=== PATIENT | female | born 1985 | race Caucasian/White ===

== ENCOUNTER 2021-09-19 16:55 | Emergency (ER) | payer OTHER ==
[2021-09-19 17:07] VITALS: BP 129/89; PULSE 80; RESP 18; TEMP 98
[2021-09-19] MEDS ORDERED: KETOROLAC 15 MG/ML 1 ML VIAL IM STA (17:55)
--- NOTE | 2021-09-19 18:06 | ED ---
General Adult HPI - General Chief complaint: Extremity Problem,Nontraumatic Stated complaint: swelling in audra. legs Time Seen by Provider: 09/19/21 17:44 Source: patient, RN notes reviewed Mode of arrival: ambulatory Limitations: no limitations - History of Present Illness Initial comments: 36-year-old female presents to the emergency department for evaluation of pain and tenderness behind bilateral knees that extends into the calves. Patient states she had a vigorous workout on August 23 and woke up the next morning with this discomfort. Patient states she initially attributed the discomfort to her workout, however became concerned as the pain has persisted and she has some bruising to the back of the right knee and calf. Patient states she was seen at urgent care and given an order for a doppler study to rule out DVT but is unable to get in until next month. Patient denies chest pain, shortness of breath, long car rides, prolonged immobilization, or any medication changes. - Related Data Previous Rx's Medication Instructions Recorded Ketorolac [Toradol] 10 mg PO Q8HR PRN #15 tab 09/19/21 Allergies Allergy/AdvReac Type Severity Reaction Status Date / Time acetaminophen [From [place]] Allergy Unknown Verified 09/19/21 17:08 codeine Allergy Unknown Verified 09/19/21 17:08 [From Tylenol-Codeine #3] hydrocodone [From [place]] Allergy Unknown Verified 09/19/21 17:08 Review of Systems ROS Statement: Those systems with pertinent positive or pertinent negative responses have been documented in the HPI. ROS Other: All systems not noted in ROS Statement are negative. Past Medical History Past Medical History: No Reported History History of Any Multi-Drug Resistant Organisms: None Reported Past Surgical History: No Surgical Hx Reported Past Psychological History: No Psychological Hx Reported Smoking Status: Never smoker Past Alcohol Use History: None Reported Past Drug Use History: None Reported General Exam Limitations: no limitations (Well-developed, well-nourished female in no acute distress. Initial temperature 98.0, pulse 80, respirations 18, blood pressure 129/89, pulse ox 96% on room air.) General appearance: alert, in no apparent distress ENT exam: Present: normal exam, normal oropharynx Respiratory exam: Present: normal lung sounds bilaterally. Absent: respiratory distress, wheezes, rales, rhonchi, stridor, chest wall tenderness Cardiovascular Exam: Present: regular rate, normal rhythm, normal heart sounds. Absent: systolic murmur, diastolic murmur, rubs, gallop, clicks GI/Abdominal exam: Present: soft, normal bowel sounds. Absent: distended, tenderness, guarding, rebound, rigid Left Upper Leg exam: Present: normal inspection, full ROM. Absent: tenderness, swelling Knee exam: Present: normal inspection, tenderness (tenderness upon palpation of popliteal fossa). Absent: full ROM (ROM somewhat limited beyond 90 degress), swelling (no obvious swellng though patient reports sensation of swelling popliteal surface), ecchymosis, deformity, crepitus, dislocation, erythema, effusion Lower Leg exam: Present: normal inspection, full ROM. Absent: tenderness, swelling, erythema, Homans' sign Ankle exam: Present: normal inspection, full ROM. Absent: tenderness, swelling, erythema Foot/Toe exam: Present: normal inspection, full ROM. Absent: tenderness, sw elling, erythema Neurovascular tendon exam: Present: no vascular compromise. Absent: pulse deficit, abnormal cap refill, motor deficit, sensory deficit, tendon deficit Gait: observed and normal Right Upper Leg exam: Present: normal inspection, full ROM. Absent: tenderness, swelling Knee exam: Present: normal inspection, tenderness, ecchymosis (small ecchymotic area superior and lateral), full knee extension. Absent: full ROM (slightly limited ROM beyond 90 degrees), swelling (reports sensation of swelling despite appearance), deformity, erythema, effusion Lower Leg exam: Present: normal inspection, full ROM. Absent: tenderness, swelling, abrasion, erythema, Homans' sign Ankle exam: Present: normal inspection, full ROM. Absent: tenderness, swelling, erythema Foot/Toe exam: Present: normal inspection, full ROM. Absent: tenderness, swelling Neurovascular tendon exam: Present: no vascular compromise. Absent: pulse deficit, abnormal cap refill, motor deficit, sensory deficit, tendon deficit Gait: observed and normal Neurological exam: Present: alert, oriented X3, CN II-XII intact Psychiatric exam: Present: normal affect, normal mood Skin exam: Present: warm, dry, intact, normal color. Absent: rash Course Vital Signs 09/19/21 17:00 Temperature 98.0 F Pulse Rate 80 Respiratory 18 Rate Blood Pressure 129/89 O2 Sat by Pulse 96 Oximetry - Reevaluation(s) Reevaluation #1: 09/19/21 19:00 Patient updated on results from work-up. Her pain is minimal and her mobility is intact. Encouraged to follow up with orthopedics as she does not have a PCP. Medical Decision Making - Medical Decision Making 36-year-old female with no significant past medical history presents to the emergency department for evaluation of bilateral popliteal fossa pain, onset August 23. Upon exam, patient is noted to be ambulating without difficulty. Mobility is intact. She does not appear in significant discomfort. Complains of pain extending into the calves Ultrasound of bilateral lower extremities was obtained and was negative for DVT. Patient was given IM Toradol with improvement. She does not have a PCP in which to follow-up with therefore she was given orthopedics contact information. She is encouraged to continue her regular physical activity though cautioned to avoid strenuous, overly vigorous activity. Return parameters were discussed in detail. Patient verbalizes understanding and agrees with this plan. Attending: Conrad. - Radiology Data Radiology results: report reviewed Ultrasound of bilateral lower extremities was obtained. Report was reviewed in its entirety. Impression per Dr. Luo is no evidence for DVT within the bilateral lower extremities.Targeted scanning along the popliteal fossae show no Zepeda cyst. There is normal compressible superficial vein noted and popliteal cysts on either side. Disposition Clinical Impression: Posterior left knee pain, Posterior right knee pain Disposition: HOME SELF-CARE Condition: Stable Instructions (If sedation given, give patient instructions): Knee Pain (ED) Additional Instructions: Avoid vigorous or strenuous activity. Consider gentle range of motion and stretching exercises. Apply ice for no more than 20 minutes per hour. Take Toradol if needed for pain. Follow up with orthopedics for further evaluation and treatment. Return to the emergency department with any new, worsening, or concerning symptoms. Prescriptions: Ketorolac [Toradol] 10 mg PO Q8HR PRN #15 tab PRN Reason: Pain Is patient prescribed a controlled substance at d/c from ED?: No Referrals: None,Stated [REFERRING] - 1-2 days Surjit Abdullahi MD [Medical Doctor] - 1-2 days Time of Disposition: 19:27
--- NOTE | 2021-09-19 18:53 | US ---
EXAMINATION TYPE: US venous doppler duplex LE BI DATE OF EXAM: 09/19/2021 6:42 PM COMPARISON: NONE CLINICAL HISTORY: 36-year-old female bilateral leg swelling and pain . EC patient with bilateral calf swelling and palpable masses at popliteal fossa approximately one month SIDE PERFORMED: Bilateral TECHNIQUE: The lower extremity deep venous system is examined utilizing real time linear array sonog timbo with graded compression, doppler sonography and color-flow sonography. FINDINGS: VESSELS IMAGED: Common Femoral Vein Deep Femoral Vein Greater Saphenous Vein * Femoral Vein Popliteal Vein Small Saphenous Vein * Proximal Calf Veins Posterior tibial veins (* superficial vessels) Right Leg: Negative for DVT Left Leg: Negative for DVT Stonemason Apprentice notes: At bilateral popliteal fossa: US findings show superficial vein that compresses no rmally. IMPRESSION: 1. No evidence for DVT within the bilateral lower extremities. 2. Targeted scanning along the popliteal fossae shows no Zepeda's cyst. There is a normally compressib le superficial vein noted in the popliteal fossa on either side.
== END 2021-09-19 19:30 | disposition home or self-care (01) ==
LOC: EC 16:55
DX: M25.561 Pain in right knee (principal); M25.562 Pain in left knee
CPT/HCPCS: 93970; 99283; 96372; J1885